=== PATIENT | male | born 1995 | race Caucasian/White ===

== ENCOUNTER 2019-02-18 18:35 | Emergency (ER) | payer BC ==
[~2019-02-18] VITALS: Ht 177.8 cm; Wt 61.8 kg
[2019-02-18] MEDS ORDERED: ONDANSETRON 4MG/2ML VIAL (J2405) IV ONE (19:45)
[2019-02-18] MEDS ORDERED: MORPHINE 2 MG/ML 1ML VIAL (J2270) IV ONE (19:45)
[2019-02-18] MEDS ORDERED: NS 1,000 ML IV ONE (19:45)
[2019-02-18] MEDS: propofoL 200 MG/20 ML VIAL IV PRN ×2 (20:10→20:12)
[2019-02-18] MEDS ORDERED: IBUP-1022 PO (20:43)
[2019-02-18] MEDS ORDERED: NORCO 5/325MG TABLET (BULK FOR ED) PO ONE (20:45)
[2019-02-18 20:55] VITALS: BP 127/67
--- NOTE | 2019-02-18 20:57 | REP ---
Right shoulder: Single view. History: Post reduction. Findings: The right glenohumeral and acromioclavicular joints are normally aligned. No fractures seen. Electronically Signed by Kimani Barkley MD 02/18/2019 08:48 P
--- NOTE | 2019-02-18 21:35 | REP ---
Right shoulder series: Three views. History: Question dislocation. Findings: Three views of the right shoulder demonstrate an anterior inferior right sided glenohumeral dislocation. No fracture is visible. AC joint is normally aligned. Impression: Anterior inferior glenohumeral dislocation on the right. No fracture observed. Electronically Signed by Kimani Barkley MD 02/19/2019 10:40 A
== END 2019-02-18 21:05 | disposition home or self-care (01) ==
LOC: M ED 18:35
DX: S43.014A Anterior dislocation of right humerus, initial encounter (principal); X50.3XXA Overexertion from repetitive movements, initial encounter; Y92.312 Tennis court as the place of occurrence of the external cause; Y93.69 Activity, other involving other sports and athletics played as a team or group
CPT/HCPCS: 23650; 73020; 73030; 96374; 96375; 99152; 99153; 99285; J2270; J2405